=== PATIENT | male | born 1950 | race Two or more races ===

== ENCOUNTER 2018-04-12 17:09 | Emergency (ER) | payer MEDICARE ==
[~2018-04-12] VITALS: Ht 167.6 cm; Wt 68.9 kg
[2018-04-12] MEDS ORDERED: ASPI81TA31 PO (17:25)
[2018-04-12] MEDS ORDERED: BENA20TA9 PO (17:25)
[2018-04-12] MEDS ORDERED: FINA5TAB11 PO (17:25)
[2018-04-12] MEDS ORDERED: TAMS-3 PO (17:25)
[2018-04-12] MEDS ORDERED: ATEN25TA PO (17:25)
--- NOTE | 2018-04-12 17:41 | NUR ---
PT IS IN ROOM #2B. DR CARTAGENA EVALUATED THE PT.
[2018-04-12 17:49] LABS: BASOPHILS # (AUTO) 0.1 K/uL (0.0-8.0); EOSINOPHILS # (AUTO) 0.1 K/uL (0.0-0.7); EOSINOPHILS % (AUTO) 1.3 % (0.0-7.0); HEMATOCRIT 43.8 % (36.7-47.1); LYMPHOCYTES % (AUTO) 28.6 % (20.5-51.5); MEAN CORPUSCULAR HEMOGLOBIN 30.5 uug (23.8-33.4); MEAN CORPUSCULAR HGB CONC 34 g/dL (32.5-36.3); MONOCYTES # (AUTO) 0.7 K/uL (2.0-10.0); MONOCYTES % (AUTO) 9.7 % (0.0-11.0); NEUTROPHILS # (AUTO) 4.1 K/uL (1.8-8.9); NEUTROPHILS % (AUTO) 59.4 % (38.5-71.5); PLATELET COUNT (AUTO) 179 K/uL (152-348); RED BLOOD CELL COUNT(AUTO) 4.92 MIL/uL (4.06-5.63)
[2018-04-12 17:52] LABS: CREATININE 1.5 mg/dL (0.6-1.3); POTASSIUM 3.9 mmol/L (3.5-5.1)
[2018-04-12 17:59] LABS: BILIRUBIN,DIRECT 0.1 mg/dL (0.0-0.2); BILIRUBIN,TOTAL 0.4 mg/dL (0.2-1.0); TOTAL PROTEIN, SERUM 7.2 g/dL (6.4-8.2)
--- NOTE | 2018-04-12 18:18 | NUR ---
PT WAS D/C TO HOME. D/C INSTRUCTIONS GIVEN TO THE PT.
[2018-04-12 18:19] VITALS: BP 132/76
== END 2018-04-12 18:22 | disposition home or self-care (01) ==
LOC: ER 17:15
DX: Z00.00 Encounter for general adult medical examination without abnormal findings (principal); I10 Essential (primary) hypertension; Z79.82 Long term (current) use of aspirin; Z79.899 Other long term (current) drug therapy
CPT/HCPCS: 36415; 85025; 93005; A4663

== ENCOUNTER 2022-07-07 03:46 | Emergency (ER) | payer MEDICARE, OTHER ==
[~2022-07-07] VITALS: Ht 165.1 cm; Wt 68.0 kg
[~2022-07-07 03:46] MED LIST: ASPI81TA31 PO; ATEN25TA PO; BENA20TA9 PO; FINA5TAB11 PO; TAMS-3 PO
[2022-07-07] MEDS ORDERED: HYDROMORPHONE 1 MG/1 ML DISP.SYRIN IV ONE (04:00)
--- NOTE | 2022-07-07 04:10 | NUR ---
Patient ambulated into room #4, informed of plan of care, placed into gown and on monitor. #20g established in right arm, blood collected and sent to lab. MD at bedside for exam, c/o tenderness to LLQ, remains alert and oriented x4, no s/s of any distress or edema noted. Side rails up, will continue to monitor.
[2022-07-07 04:11] LABS: HEMATOCRIT 44.6 % (36.7-47.1); MEAN CORPUSCULAR HEMOGLOBIN 29.7 uug (23.8-33.4); MEAN CORPUSCULAR VOLUME 86.7 fL (73.0-96.2); PLATELET COUNT (AUTO) 171 K/uL (152-348)
[2022-07-07] MEDS ORDERED: HYDROMORPHONE 1 MG/1 ML DISP.SYRIN ONE (04:11)
[2022-07-07 04:39] LABS: POTASSIUM 3.4 mmol/L (3.5-5.1)
--- NOTE | 2022-07-07 04:41 | NUR ---
Urine collected and sent to lab, states his pain is better at this time, continues to await lab results.
[2022-07-07 04:45] LABS: BILIRUBIN,DIRECT 0.1 mg/dL (0.0-0.2)
[2022-07-07] MEDS ORDERED: IOHEXOL 300MG/ML 100 ML INFUS..BTL ONE (04:50)
--- NOTE | 2022-07-07 04:56 | NUR ---
Patient off unit to CT.
--- NOTE | 2022-07-07 05:11 | NUR ---
Patient has returned from CT, awaiting results.
[2022-07-07 05:38] LABS: *BILIRUBIN,URIN NEGATIVE (NEGATIVE); *BLOOD, URINE 2+ (NEGATIVE); *CLARITY,URINE CLEAR (CLEAR); *COLOR,URINE YELLOW (YELLOW); *KETONES,URINE 1+ (NEGATIVE); *UROBILINOGEN,URINE 0.2 E.U./dl (NORMAL); LEUKOCYTE ESTERASE ,URINE NEGATIVE (NEGATIVE); NITRITE, URINE NEGATIVE (NEGATIVE); UGLUCOSE NEGATIVE (NEGATIVE)
[2022-07-07 06:03] LABS: BACTERIA,URINE NONE SEEN /HPF (NONE SEEN); SQUAMOUS EPITHELIAL CELL,UR FEW /HPF (NONE SEEN); WBC,URINE 0-3 /HPF (0-3)
--- NOTE | 2022-07-07 06:08 | NUR ---
MD aware of b/p of 166/102 at this time, will be medicated as per order.
[2022-07-07] MEDS ORDERED: BENAZEPRIL HCL 10 MG TABLET ONE (06:10)
[2022-07-07] MEDS ORDERED: BENAZEPRIL HCL 10 MG TABLET PO ONE (06:15)
--- NOTE | 2022-07-07 06:46 | NUR ---
Patient awaiting results, no change in primary assessment noted. No voiced c/o pain or discomfort at this time.
--- NOTE | 2022-07-07 07:20 | NUR ---
Received patient awake. AO x 4. No signs of acute distress. Will continue to monitor patient.
[2022-07-07] MEDS ORDERED: AMOX-430 PO (08:07)
--- NOTE | 2022-07-07 08:20 | NUR ---
Patient discharged to home in stable condition. Written and verbal after care instructions given. Patient verbalizes understanding of instructions. Stressed follow up or return to ER for worsening s/s.
[2022-07-07 08:23] VITALS: BP 140/99
== END 2022-07-07 08:20 | disposition home or self-care (01) ==
LOC: ER 03:46
DX: R10.32 Left lower quadrant pain (principal); K57.32 Diverticulitis of large intestine without perforation or abscess without bleeding; N28.1 Cyst of kidney, acquired; N40.0 Benign prostatic hyperplasia without lower urinary tract symptoms; R31.29 Other microscopic hematuria; Z79.82 Long term (current) use of aspirin; Z79.899 Other long term (current) drug therapy
CPT/HCPCS: 80076; 80048; 81001; 83690; 85025; 36415; 74177; 99285; 96374; Q9967; J1170; A4663

== ENCOUNTER 2023-11-16 18:26 | Emergency (ER) | payer MEDICARE, OTHER ==
[~2023-11-16] VITALS: Ht 165.1 cm; Wt 66.7 kg
[~2023-11-16 18:26] MED LIST changes: +AMOX-430 PO
[2023-11-16] MEDS ORDERED: ACETAMINOPHEN 500 MG TABLET ONE (18:54)
[2023-11-16] MEDS: ACETAMINOPHEN 500 MG TABLET PO ONE (18:57)
[2023-11-16 19:45] VITALS: BP 130/88; TEMP 97.8; O2SAT 98
== END 2023-11-16 19:40 | disposition home or self-care (01) ==
LOC: ER 18:42
DX: R51.9 Headache, unspecified (principal); Z79.82 Long term (current) use of aspirin; Z79.899 Other long term (current) drug therapy
CPT/HCPCS: A4606; A4663; A9150

== ENCOUNTER 2024-01-09 19:28 | Emergency (ER) | payer MEDICARE, OTHER ==
[~2024-01-09] VITALS: Ht 165.1 cm; Wt 65.8 kg
[2024-01-09 20:14] LABS: BASOPHILS % (AUTO) 0.8 % (0.0-2.0); EOSINOPHILS # (AUTO) 0.1 K/uL (0.0-0.7); EOSINOPHILS % (AUTO) 2.4 % (0.0-7.0); HEMATOCRIT 45.6 % (36.7-47.1); HEMOGLOBIN 15.2 g/dL (12.5-16.3); LYMPHOCYTES # (AUTO) 1.9 K/uL (0.8-4.8); MEAN CORPUSCULAR HEMOGLOBIN 29.8 uug (23.8-33.4); MEAN CORPUSCULAR HGB CONC 33 g/dL (32.5-36.3); MEAN CORPUSCULAR VOLUME 89.6 fL (73.0-96.2); MONOCYTES # (AUTO) 0.7 K/uL (0.1-1.30); MONOCYTES % (AUTO) 11.9 % (0.0-11.0); NEUTROPHILS # (AUTO) 2.8 K/uL (1.8-8.9); NEUTROPHILS % (AUTO) 50.9 % (38.5-71.5); PLATELET COUNT (AUTO) 168 K/uL (152-348); RED BLOOD CELL COUNT(AUTO) 5.09 MIL/uL (4.06-5.63); RED CELL DISTRIBUTION WIDTH 14.1 % (12.1-16.2); WHITE BLOOD COUNT (AUTO) 5.5 K/uL (3.6-10.2)
[2024-01-09 20:18] LABS: DIFFERENTIAL COMMENT 1
[2024-01-09 20:36] LABS: ALANINE AMINOTRANSFERASE 16 U/L (16-63); ALBUMIN 3.5 g/dL (3.4-5.0); ALKALINE PHOSPHATASE 71 U/L (50-136); ASPARTATE AMINOTRANSFERASE 10 U/L (15-37); BILIRUBIN,DIRECT 0.2 mg/dL (0.0-0.2); BILIRUBIN,TOTAL 0.5 mg/dL (0.2-1.0); CALCIUM 8.9 mg/dL (8.5-10.1); CARBON DIOXIDE 32 mmol/L (21-32); CHLORIDE 106 mmol/L (98-107); CREATININE 0.9 mg/dL (0.6-1.3); GLUCOSE 100 mg/dL (74-106); NT-PRO BNP 217 pg/mL (0-125); POTASSIUM 4.2 mmol/L (3.5-5.1); SODIUM SERUM 142 mmol/L (136-145); TOTAL PROTEIN, SERUM 7.6 g/dL (6.4-8.2); UREA NITROGEN, BLOOD 16 mg/dL (7-18)
[2024-01-09] MEDS ORDERED: BENAZEPRIL HCL 10 MG TABLET PO ONE (21:15)
[2024-01-09] MEDS: IV NORMAL SALINE 1000 ML BAG IV ONE (21:33)
[2024-01-09 23:12] VITALS: BP 169/105; TEMP 97.9; O2SAT 98
== END 2024-01-09 23:00 | disposition home or self-care (01) ==
LOC: ER 19:29
DX: R07.89 Other chest pain (principal); Z79.899 Other long term (current) drug therapy; Z79.82 Long term (current) use of aspirin
CPT/HCPCS: 99285; 96360; 71045; 80076; 80048; 83880; 85025; 85379; 85730; 84484 ×2; 36415; 93005; J7040; A4606; A4663